=== PATIENT | female | born 1955 | race Caucasian/White ===

== ENCOUNTER 2018-10-19 19:22 | Inpatient (IN) ==
[2018-10-19] MEDS ORDERED: 0.9 % SODIUM CHLORIDE 1,000 ML IV ONE ×2 (19:49→21:02)
--- NOTE | 2018-10-19 19:53 | Emergency Department Note ---
General Adult HPI <Damián Mai - Last Filed: 10/20/18 10:19> - General Source: patient Mode of arrival: ambulatory Limitations: no limitations - History of Present Illness Onset (ago): day(s) (3) Associated symptoms: Reports: loss of appetite, malaise, nausea/vomiting. Denies: confusion, chest pain, cough, diaphoresis, fever/chills, headaches, seizure, shortness of breath, syncope Treatments Prior to Arrival: none <Eneida Marks - Last Filed: 10/25/18 11:32> - General Chief complaint: Blood Pressure Problem Stated complaint: low blood pressure Time Seen by Provider: 10/19/18 19:28 - History of Present Illness HPI Narrative: See the remainder part of this documentation by ALBERTA Nevarez which I agree. I also saw and interviewed and examined patient. She reports that she has been drinking a small bottle of wine nightly for 12 years. She denies blood in her stools. She does not feel like she is going through withdrawals but has not had alcohol in the past couple of days. She does not feel shaky or nervous or sweaty. She reports an additional history of coronary artery disease with stents in 2005 in 2011 she thinks a couple of stents on each of those occasions in her coronary arteries. She also had stents placed in 1 of her lower extremities in 2013. (Damián Mai) 63-year-old female in ED with concerns of low blood pressure readings. Patient states 2 nights ago she had 2 separate episodes of vomiting, one day ago she woke felt ill and had another 2 episodes of vomiting, she went to work had half a glass of water and a couple bites of a banana and had another episode of vomiting. Patient went home and had 3 episodes of diarrhea. Patient woke today with fatigue and feeling dizzy. The vomiting and diarrhea had stopped. Patient advises she is a wine drinker up to a bottle and night but has not drank for the last 3 nights. Patient states she took her blood pressures throughout the afternoon while she was laying in bed on her wrist and had multiple low readings ranging from 59/41 to 82/45. Patient does take medications for hypertension and high cholesterol. Patient states she has had an appendectomy and total hysterectomy in the past. (Eenida Marks) - Related Data Home Medications Medication Instructions Recorded Confirmed Ezetimibe [Zetia] 10 mg PO DAILY 06/04/16 10/19/18 Lisinopril [Zestril] 20 mg PO BID 06/04/16 10/19/18 Metoprolol Succinate [Toprol Xl] 25 mg PO HS 06/04/16 10/19/18 amLODIPine [Norvasc] 10 mg PO DAILY 06/04/16 10/19/18 buPROPion [Wellbutrin Xl] 150 mg PO DAILY 06/04/16 10/19/18 metFORMIN [Glucophage] 500 mg PO BIDCC 06/04/16 10/19/18 Chlorthalidone [Hygroton] 25 mg PO DAILY 10/19/18 10/19/18 Previous Rx's Medication Instructions Recorded Aspirin [Adult Aspirin] 81 mg PO DAILY #30 tablet. 10/20/18 Omeprazole [PriLOSEC] 40 mg PO BIDAC #90 cap 10/21/18 Allergies Allergy/AdvReac Type Severity Reaction Status Date / Time No Known Drug Allergies Allergy Verified 10/19/18 19:27 Review of Systems All systems ED: reviewed and negative except as stated. <Eneida Marks - Last Filed: 10/25/18 11:32> Past Medical History - Past Medical History Medical history: Denies: chronic anticoagulation (except full Aspirin daily (because of previous stenting).), chronic narcotics, CVA, myocardial infarction, renal disease - Social History smoking status: Former smoker (Quit 2016) Drug use: Reports: none. Denies: marijuana <Damián Mai - Last Filed: 10/20/18 10:19> - Past Medical History Medical history: Reports: non-contributory Surgical history ED: Reports: non-contributory - Social History smoking status: Former smoker <Eneida Marks - Last Filed: 10/25/18 11:32> - Past Medical History [facility] Narrative: Medical History (Last Updated 10/20/18 @ 10:15 by Damián Mai DO) Peripheral arterial disease (Chronic) Coronary artery disease (Chronic) Diabetes mellitus type 2, controlled (Chronic) Hyperlipidemia, unspecified (Chronic) Hypertension, essential (Chronic) Alcoholism, chronic (Chronic) Past Surgical History (Last Updated 10/20/18 @ 10:16 by Damián Burrup, DO) S/P angioplasty with stent (Acute) S/P appendectomy (Acute) S/P arterial stent (Acute) S/P hysterectomy with oophorectomy (Acute) (Damián Mai) Physical Exam <Damián Mai - Last Filed: 10/20/18 10:19> Limitations: no limitations General appearance: alert, in no apparent distress Head: atraumatic, normocephalic, normal inspection Eye: Present: normal appearance, PERRL, EOMI. Absent: conjunctival injection ENT: normal oropharynx, mucous membranes moist, TM's normal bilaterally, normal external ear exam Neck: Present: normal inspection, full ROM, trachea midline. Absent: tenderness, lymphadenopathy Chest: Present: normal inspection, symmetric chest wall rise. Absent: tenderness Respiratory: Present: normal lung sounds bilaterally. Absent: respiratory distress, rales/crackles, wheezes Cardiovascular: Present: regular rate, normal rhythm. Absent: systolic murmur, diastolic murmur Abdominal: Present: soft, normal bowel sounds. Absent: distention, tenderness, guarding, rebound, rigidity Extremities: Present: normal inspection. Absent: pedal edema Back: Present: normal inspection. Absent: tenderness, CVA tenderness (R), CVA tenderness (L) Neurological: Present: alert, oriented X3, normal gait Psychiatric: Present: normal affect, normal mood. Absent: depressed, agitated, anxious, flat affect Skin: Present: warm, dry, intact, normal color. Absent: cool, diaphoretic <SelinaEneida A - Last Filed: 10/25/18 11:32> Patient seems remarkably stable in spite of her hypertension. Her orthostatics did not seem to show changes even initially with a systolic in the 70s. Second orthostatics 2 hours later were with a systolic in the 90s with no significant changes positionally. Her pulses were commonly in the 70s lower 80s. She was able to ambulate to the bathroom without any difficulties or dizziness. (Damián Mai) Vital Signs Temperature 98.6 F 10/19/18 19:23 Pulse Rate 80 10/19/18 19:23 Respiratory Rate 18 10/19/18 19:23 Blood Pressure 91/54 10/19/18 19:23 Pulse Oximetry (%) 94 10/19/18 19:23 Temperature 97 F 10/21/18 10:39 Pulse Rate 60 10/21/18 10:39 Respiratory Rate 20 10/21/18 10:39 Blood Pressure 109/73 10/21/18 10:39 Pulse Oximetry (%) 96 10/21/18 10:39 Medical Decision Making - Medical Records Medical records reviewed: Yes I reviewed the patient's medical records. - Lab Data Lab results reviewed: Yes I reviewed the patient's lab results. Result diagrams: 10/20/18 07:10 10/20/18 07:10 <Damián Mai - Last Filed: 10/20/18 10:19> - Lab Data Result diagrams: 10/21/18 04:22 10/21/18 04:22 <Eneida Marks - Last Filed: 10/25/18 11:32> - MDM Narrative Medical decision making narrative: Patient denies she has been a bottle of wine drinker for 12 years. And she does bruise easily. Patient orthostatic blood pressures upon arrival to ED Laying 72/48 heart rate 69 Sitting 73/52 heart rate 76 Standing 68/50 heart rate 81 Patient able to maintain a standing position and talk without dizziness or feelings of lightheadedness. Patient had positive guaiac. Patient received 2 L normal saline. Her blood pressures remained 80-86 systolic. Provided with patient history, diagnostics, presentation this providers end of shift. (Eneida Marks) - Lab Data Lab Results 10/19/18 10/19/18 10/19/18 Range/Units 20:00 20:00 21:30 WBC 5.9 (4.5-11.0) K/mcL RBC 2.84 L (4.00-5.20) M/mcL Hgb 8.7 L (12.0-15.0) g/dL Hct 26.1 L (36.0-48.0) % POC Hct (36.0-48.0) % MCV 91.9 (80.0-100.0) fL MCH 30.5 (26.0-34.0) pg MCHC 33.2 (31.0-36.0) g/dL RDW 13.3 (11.5-14.5) % Plt Count 218 (140-440) K/mcL MPV 8.1 (7.4-10.4) fL Gran % 61.5 (38.0-78.0) % Lymph % (Auto) 21.4 (15.5-49.0) % [place] % (Auto) 9.7 (1.0-12.0) % Eos % (Auto) 6.9 (0.0-7.0) % Baso % (Auto) 0.5 (0.0-2.0) % Gran # 3.6 (1.8-8.0) K/mcL Lymph # (Auto) 1.3 L (1.5-4.8) K/mcL [place] # (Auto) 0.6 (0.1-0.9) K/mcL Eos # (Auto) 0.4 (0.0-0.7) K/mcL Baso # (Auto) 0 (0.0-0.3) K/mcL POC PT 12.4 (11.9-14.5) sec POC INR 1.0 (0.9-1.2) POC Sodium (133-145) mmol/L Sodium 134 (133-145) mmol/L POC Potassium (3.3-5.1) mmol/L Potassium 4.0 (3.3-5.1) mmol/L POC Chloride (96-108) mmol/L Chloride 93 L (96-108) mmol/L Carbon Dioxide 25 (22-30) mmol/L POC Total CO2 (22-30) mmol/L Anion Gap 16.0 (8-16) POC BUN (8-23) mg/dl BUN 77 H (8-23) mg/dl Creatinine 1.8 H (0.6-1.1) mg/dl POC Creatinine (0.6-1.1) mg/dl GFR Calculation 30 Glucose 142 H (70-105) mg/dL POC Glucose (70-105) mg/dL Calcium 9.3 (8.6-10.4) mg/dl POC WB Ioniz Calcium (1.16-1.32) mmol/L Total Bilirubin 0.2 (0.0-1.0) mg/dL AST 63 H (0-37) U/l ALT 43 H (0-40) U/l Alkaline Phosphatase 68 (39-117) U/L Total Protein 7.1 (5.9-8.4) gm/dL Albumin 4.2 (3.2-5.2) gm/dL Globulin 2.9 (2.2-3.7) gm/dL Albumin/Globulin Ratio 1.4 (1.0-2.3) Lipase (7-60) U/L Urine Color Urine Appearance Urine pH (5.0-9.0) Ur Specific [place] (1.000-1.035) Urine Protein (NEG) mg/dL Urine Glucose (UA) (NEG) mg/dL Urine Ketones (NEG) mg/dL Urine Occult Blood (<0.03) mg/dL Urine Nitrate (NEG) Urine Bilirubin (NEG) mg/dL Urine Urobilinogen (NEG) mg/dL Ur Leukocyte Esterase (NEG) /uL Urine RBC (0-1) /hpf Urine WBC (0-4) /hpf Ur Squamous Epith Cells (0-4) /hpf Ur Transition Epith Cell (0-2) /hpf Urine Bacteria (0) /hpf Hyaline Casts (0-2) /lpf Ur Culture Indicated? 10/19/18 10/19/18 10/19/18 Range/Units 21:30 22:22 23:39 WBC (4.5-11.0) K/mcL RBC (4.00-5.20) M/mcL Hgb (12.0-15.0) g/dL Hct (36.0-48.0) % POC Hct 22.0 L (36.0-48.0) % MCV (80.0-100.0) fL MCH (26.0-34.0) pg MCHC (31.0-36.0) g/dL RDW (11.5-14.5) % Plt Count (140-440) K/mcL MPV (7.4-10.4) fL Gran % (38.0-78.0) % Lymph % (Auto) (15.5-49.0) % [place] % (Auto) (1.0-12.0) % Eos % (Auto) (0.0-7.0) % Baso % (Auto) (0.0-2.0) % Gran # (1.8-8.0) K/mcL Lymph # (Auto) (1.5-4.8) K/mcL [place] # (Auto) (0.1-0.9) K/mcL Eos # (Auto) (0.0-0.7) K/mcL Baso # (Auto) (0.0-0.3) K/mcL POC PT (11.9-14.5) sec POC INR (0.9-1.2) POC Sodium 135 (133-145) mmol/L Sodium (133-145) mmol/L POC Potassium 3.8 (3.3-5.1) mmol/L Potassium (3.3-5.1) mmol/L POC Chloride 101 (96-108) mmol/L Chloride (96-108) mmol/L Carbon Dioxide (22-30) mmol/L POC Total CO2 20 L (22-30) mmol/L Anion Gap (8-16) POC BUN 69 H (8-23) mg/dl BUN (8-23) mg/dl Creatinine (0.6-1.1) mg/dl POC Creatinine 1.6 H (0.6-1.1) mg/dl GFR Calculation Glucose (70-105) mg/dL POC Glucose 95 (70-105) mg/dL Calcium (8.6-10.4) mg/dl POC WB Ioniz Calcium 1.01 L (1.16-1.32) mmol/L Total Bilirubin (0.0-1.0) mg/dL AST (0-37) U/l ALT (0-40) U/l Alkaline Phosphatase (39-117) U/L Total Protein (5.9-8.4) gm/dL Albumin (3.2-5.2) gm/dL Globulin (2.2-3.7) gm/dL Albumin/Globulin Ratio (1.0-2.3) Lipase 55 (7-60) U/L Urine Color Yellow Urine Appearance Hazy Urine pH 6.0 (5.0-9.0) Ur Specific [place] 1.010 (1.000-1.035) Urine Protein Neg (NEG) mg/dL Urine Glucose (UA) Norm (NEG) mg/dL Urine Ketones Neg (NEG) mg/dL Urine Occult Blood Neg (<0.03) mg/dL Urine Nitrate Neg (NEG) Urine Bilirubin Neg (NEG) mg/dL Urine Urobilinogen Norm (NEG) mg/dL Ur Leukocyte Esterase 1+ (small) (NEG) /uL Urine RBC 1 (0-1) /hpf Urine WBC 41 H (0-4) /hpf Ur Squamous Epith Cells 2 (0-4) /hpf Ur Transition Epith Cell 3 H (0-2) /hpf Urine Bacteria Few A (0) /hpf Hyaline Casts 1 (0-2) /lpf Ur Culture Indicated? Yes Disposition Pt seen by SUPERINTENDENT [employer]/PA only: No <Damián Mai - Last Filed: 10/20/18 10:19> Time of Disposition: 11:32 <Eneida Marks - Last Filed: 10/25/18 11:32> Clinical Impression: Anemia, blood loss, Alcoholism, chronic, Elevated LFTs Hypotension Qualifiers: Hypotension type: other hypotension type Qualified Code(s): I95.89 - Other hypotension Bleeding gastrointestinal Qualifiers: GI bleed type/associated pathology: unspecified gastrointestinal hemorrhage type Qualified Code(s): K92.2 - Gastrointestinal hemorrhage, unspecified ARF (acute renal failure) Qualifiers: Acute renal failure type: unspecified Qualified Code(s): N17.9 - Acute kidney failure, unspecified Summary: With patient having hypotension, positive guaiac, and anemia, she is in significant risk for dangerous GI hemorrhage. She was typed and screened 2 units, Dr. Cuellar was consulted, and is available if she decompensates and will see her tomorrow. Patient is being admitted for careful observation, and treatment. She was given a couple of liters of fluid. A second IV was started. Orthostatics were done. Dr. Strickland is assuming her care inpatient. (Damián Mai) Disposition: Xfer As Inpt ([facility]) Condition: Fair
[2018-10-19 20:43] LABS: Basophils # (Auto) 0 K/mcL (0.0-0.3); Basophils % (Auto) 0.5 % (0.0-2.0); Eosinophils # (Auto) 0.4 K/mcL (0.0-0.7); Eosinophils % (Auto) 6.9 % (0.0-7.0); Granulocytes % (Auto) 61.5 % (38.0-78.0); Lymphocytes # (Auto) 1.3 K/mcL (1.5-4.8); Lymphocytes % (Auto) 21.4 % (15.5-49.0); Mean Cell Volume 91.9 fL (80.0-100.0); Mean Corpuscular HGB Conc 33.2 g/dL (31.0-36.0); Monocytes # (Auto) 0.6 K/mcL (0.1-0.9); Monocytes % (Auto) 9.7 % (1.0-12.0); Platelet Count 218 K/mcL (140-440); RBC 2.84 M/mcL (4.00-5.20); Red Cell Distribution Width 13.3 % (11.5-14.5)
[2018-10-19 21:01] LABS: ALT/SGPT 43 U/l (0-40); Albumin 4.2 gm/dL (3.2-5.2); Albumin/Globulin Ratio 1.4 (1.0-2.3); Alkaline Phosphatase 68 U/L (39-117); Blood Urea Nitrogen 77 mg/dl (8-23)
[2018-10-20] MEDS ORDERED: ACETAMINOPHEN 325 MG TABLET PO PRN ×2 (00:07→08:53)
[2018-10-20] MEDS ORDERED: ONDANSETRON 4 MG/2 ML VIAL IV PRN ×2 (00:07→08:53)
[2018-10-20] MEDS ORDERED: 0.9 % SODIUM CHLORIDE 1,000 ML IV ONE (00:09)
[2018-10-20] MEDS ORDERED: PANTOPRAZOLE 40 MG VIAL IV ONE ×2 (00:20→00:59)
[2018-10-20] MEDS ORDERED: 0.9 % SODIUM CHLORIDE 250 ML IV SCH (00:30)
[2018-10-20] MEDS ORDERED: PANTOPRAZOLE 80 MG in 0.9 % SODIUM CHLORIDE 100 ML IV SCH ×2 (00:30→10:00)
[2018-10-20 01:06] LABS: Appearance,Urine HAZY; Bacteria,Urine FEW /hpf (0); Bilirubin,Urine NEG (NEG); Color,Urine YELLOW; Glucose,Urine (UA) NORM (NEG); Leukocyte Esterase,Urine 1+ (SMALL) /uL (NEG); Protein,Urine NEG (NEG); Urine Blood NEG mg/dL (<0.03); Urine Hyaline Cast 1 /lpf (0-2); Urine RBC 1 /hpf (0-1); Urine Squamous Epithelial Cell 2 /hpf (0-4); Urine Transitional Epi Cells 3 /hpf (0-2); Urine WBC 41 /hpf (0-4); Urobilinogen,Urine NORM (NEG)
[2018-10-20] MEDS ORDERED: LORazepam 2 MG/ML VIAL ONE (02:06)
[2018-10-20] MEDS ORDERED: hydrOXYzine 25 MG TABLET PO ONE (02:06)
[2018-10-20] MEDS ORDERED: LORazepam 2 MG/ML VIAL IV ONE (02:06)
[2018-10-20] MEDS: 0.9 % SODIUM CHLORIDE 1,000 ML IV SCH ×4 (06:14→20:49)
--- NOTE | 2018-10-20 07:55 | Internal Med History&Physical ---
Medical - H&P: HPI Patient information: Note initiated : 10/20/18 at 7:52 am Service Date, if different from initiated Date: [] Patient: Mathieu Hebert a 63 y/o F admitted on 10/20/18 for low blood pressure. Chief Complaint: [] History of present illness: Ms. Hebert is a 63 year old F Who presents to the ED for fatigue lightheadedness low blood pressure. Patient reports that Monday evening she developed nausea vomiting of dark vomitus. The next day she had some an episode in the morning as well but went to work and then later at the end of the workday started having nausea vomiting again. She had diarrhea which was dark. She felt very weak and lightheaded. She went home from work and slept all night. Monday she did not have any nausea vomiting diarrhea but had severe lightheadedness and weakness and measured her blood pressure with systolic in the 70s and 80s. Came to the ED. In the ED she had a hemoglobin 8.7 with a Hemoccult positive stool. Her BUN and creatinine were elevated. EKG was okay and chest x-ray is okay no chest pain or shortness of breath. Dr. Cuellar was contacted who would perform endoscopy on Monday. Patient received 3 L of IV fluids overnight as well as 2 units of PRBCs. Patient does feel better this morning. No vomiting or diarrhea overnight. She has not had this before. She drinks a bottle of wine a night but has not had any increased intake lately. She takes an aspirin 325 daily Review of Systems: Pertinent positives as above. Denies headache/fever/chills/chest or abdominal pain/cough/dyspnea. Remaining 10 point review of systems reviewed and negative Medical - H&P: PMH Medical history: Medical History (Last Updated 10/19/18 @ 22:07 by Damián Mai DO) Diabetes mellitus type 2, controlled (Chronic) Hyperlipidemia, unspecified (Chronic) Hypertension, essential (Chronic) Alcoholism, chronic (Chronic) Past Surgical History (Last Updated 10/19/18 @ 22:03 by Damián Mai DO) S/P appendectomy (Acute) S/P hysterectomy with oophorectomy (Acute) Family history: Mother had stomach cancer she did not know her father Social history: She quit smoking 2 years ago Drinks up to a bottle of wine a night no liquor, she wants to cut back Lives by herself Medical - H&P: Meds Home Medications Medication Instructions Recorded Confirmed Type Ezetimibe [Zetia] 10 mg PO DAILY 06/04/16 10/19/18 History Lisinopril [Zestril] 20 mg PO BID 06/04/16 10/19/18 History Metoprolol Succinate [Toprol Xl] 25 mg PO HS 06/04/16 10/19/18 History amLODIPine [Norvasc] 10 mg PO DAILY 06/04/16 10/19/18 History buPROPion [Wellbutrin Xl] 150 mg PO DAILY 06/04/16 10/19/18 History metFORMIN [Glucophage] 500 mg PO BIDCC 06/04/16 10/19/18 History Chlorthalidone [Hygroton] 25 mg PO DAILY 10/19/18 10/19/18 History Aspirin [Lite Coat Aspirin] 1 tab PO DAILY 10/20/18 10/20/18 History Allergies Allergy/AdvReac Type Severity Reaction Status Date / Time No Known Drug Allergies Allergy Verified 10/19/18 19:27 Medical - H&P: Exam - Constitutional Vitals: Temp Pulse Resp BP Pulse Ox 97.4 F 51 L 16 95/58 99 10/20/18 07:02 10/20/18 06:00 10/20/18 07:02 10/20/18 07:02 10/20/18 07:02 Exam: General: Alert, Awake, No acute Distress Eyes/N/T: EOMI, PEERL, DMM Head/Neck: neck supple, normocephalic atraumatic CV: RRR, 2/6 SM Pulm: Clear b/l, no wheezing/rhonchi/rales Abd: soft, nontender, +BS x4 Ext: no clubbing/cyanosis/edema Neuro: Alert, no focal deficits, moves all extremities, CN 2-12 grossly intact, symmetrical strength b/l upper/lower, sensations intact b/l upper/lower Skin: warm/dry Medical - H&P: Reslt - Labs CBC & Chem 7: 10/19/18 20:00 10/19/18 20:00 Labs: Short CBC 10/19/18 Range/Units 20:00 WBC 5.9 (4.5-11.0) K/mcL Hgb 8.7 L (12.0-15.0) g/dL Hct 26.1 L (36.0-48.0) % Plt Count 218 (140-440) K/mcL BMP 10/19/18 20:00 Sodium 134 Potassium 4.0 Chloride 93 L Carbon Dioxide 25 BUN 77 H Creatinine 1.8 H Glucose 142 H Calcium 9.3 Liver Function 10/19/18 Range/Units 20:00 Total Bilirubin 0.2 (0.0-1.0) mg/dL AST 63 H (0-37) U/l ALT 43 H (0-40) U/l Alkaline Phosphatase 68 (39-117) U/L Albumin 4.2 (3.2-5.2) gm/dL Urine 10/19/18 Range/Units 23:39 Urine Color Yellow Urine Appearance Hazy Urine pH 6.0 (5.0-9.0) Ur Specific [place] 1.010 (1.000-1.035) Urine Protein Neg (NEG) mg/dL Urine Glucose (UA) Norm (NEG) mg/dL - Impressions Chest x-ray and EKG unremarkable for any acute process Medical - H&P: A/P - Narrative A/P Narrative: A: *GI bleed: *Acute blood loss anemia: -s/p 2PRBC (10/20) *Hypotension: Secondary to hypovolemia/hemorrhage from blood loss and medications *GLYNN: 2/2 above *CAD w/stent: No chest pain. has been on ASA 325 daily *Alcohol abuse: *DM: On metformin at home *HTN: On Norvasc/ Toprol/ chlorthalidone/ lisinopril at home * P: -IVF's -serial H&H -PPI gtt -Dr. Jefferson for endoscopy -CIWA, Vitamins, prn Benzo -BP meds held -ASA held, needs only 81mg -SSI - -ppx: [facility] Medical - H&P: Qual - VTE Deep Vein Thrombosis/Pulmonary Embolism Present on Admission: No
[2018-10-20 08:00] LABS: Basophils # (Auto) 0 K/mcL (0.0-0.3); Basophils % (Auto) 0.7 % (0.0-2.0); Eosinophils # (Auto) 0.4 K/mcL (0.0-0.7); Eosinophils % (Auto) 9.1 % (0.0-7.0); Granulocytes % (Auto) 49.9 % (38.0-78.0); Lymphocytes # (Auto) 1.1 K/mcL (1.5-4.8); Lymphocytes % (Auto) 28.5 % (15.5-49.0); Mean Cell Volume 90.8 fL (80.0-100.0); Mean Corpuscular HGB Conc 33.6 g/dL (31.0-36.0); Monocytes # (Auto) 0.5 K/mcL (0.1-0.9); Monocytes % (Auto) 11.8 % (1.0-12.0); Platelet Count 153 K/mcL (140-440); RBC 3.28 M/mcL (4.00-5.20); Red Cell Distribution Width 14.1 % (11.5-14.5)
--- NOTE | 2018-10-20 08:08 | XRay Report ---
HISTORY: Hypotension and dizziness FINDINGS: The lungs are clear and normally expanded. The heart size, pulmonary vasculature, mediastinum, joão and pleura are normal. There are few old healed bilateral rib fractures. Spine has a mild kyphotic curvature and mild arthritis. IMPRESSION: Normal chest. Interpreted and Authenticated by: John Crespo 10/20/18
[2018-10-20 08:13] LABS: ALT/SGPT 36 U/l (0-40); Albumin 3.7 gm/dL (3.2-5.2); Albumin/Globulin Ratio 1.5 (1.0-2.3); Alkaline Phosphatase 56 U/L (39-117); Bilirubin,Direct < 0.2 mg/dL (0.0-0.3); Blood Urea Nitrogen 49 mg/dl (8-23); Gamma Glutamyl Transpeptidase 111 U/L (5-36)
[2018-10-20] MEDS ORDERED: DEXTROSE 31 GM ORAL.SUSP PO PRN (08:53)
[2018-10-20] MEDS ORDERED: chlordiazePOXIDE 25 MG CAPSULE PO PRN (08:53)
[2018-10-20] MEDS ORDERED: LORazepam 2 MG/ML VIAL IV PRN (08:53)
[2018-10-20] MEDS ORDERED: POTASSIUM CHLORIDE 40 MEQ in DEXTROSE 5% IN WATER 500 ML IV PRN (08:53)
[2018-10-20] MEDS ORDERED: IPRATROPIUM/ALBUTEROL 3 ML AMPUL.NEB NEB PRN (08:53)
[2018-10-20] MEDS ORDERED: POTASSIUM CHLORIDE 20 MEQ TABLET PO PRN ×2 (08:53)
[2018-10-20] MEDS ORDERED: PROMETHAZINE 25 MG TABLET PO PRN (08:53)
[2018-10-20] MEDS ORDERED: DEXTROSE 50% 50 ML VIAL IV PRN (08:53)
[2018-10-20] MEDS ORDERED: POLYETHYLENE GLYCOL 3350 17 GM PACKET PO ONE (08:53)
[2018-10-20] MEDS ORDERED: MAGNESIUM SULFATE 2 GM/50 ML BAG IV PRN (08:53)
[2018-10-20] MEDS: MULTIVIT,THER IRON,CA,FA & MIN 1 TABLET PO SCH (10:20)
[2018-10-20] MEDS: FOLIC ACID 1 MG TABLET PO SCH (10:20)
[2018-10-20] MEDS: THIAMINE 100 MG in 0.9 % SODIUM CHLORIDE 50 ML IV SCH (10:20)
[2018-10-20] MEDS: buPROPion 150 MG TAB.XL.24H PO SCH (10:23)
[2018-10-20] MEDS: INSULIN LISPRO 1 UNIT/0.01 ML UNIT SQ SCH ×3 (12:05→20:48)
[2018-10-20] MEDS ORDERED: KETAMINE HCL 50 MG/ML ML IV PRN (13:29)
[2018-10-20] MEDS ORDERED: MIDAZOLAM 2 MG/2 ML VIAL IV SCH (13:30)
[2018-10-20] MEDS ORDERED: PROPOFOL 200 MG/20 ML VIAL IV SCH (13:30)
[2018-10-20] MEDS: 0.9 % SODIUM CHLORIDE 10 ML SYRINGE IV SCH ×4 (13:30→22:49)
[2018-10-20] MEDS ORDERED: MIDAZOLAM 2 MG/2 ML VIAL ONE (13:35)
[2018-10-20] MEDS ORDERED: PROPOFOL 20 ML IV ONE (13:35)
--- NOTE | 2018-10-20 15:28 | Discharge Summary ---
Medical - DS: Prov Patient information: Note initiated : 10/20/18 at 3:26 pm Service Date, if different from initiated Date: [] Patient: Mathieu Hebert 63 y/o F admitted on 10/20/18 for low blood pressure. Chief Complaint: [] Date of admission: 10/20/18 00:44 Discharge date: 10/21/18 Primary care physician: Dhaval Navarro Consults: 10/19/18 Consult to Physician [CONS] Stat Comment: Consulting Provider: Gera Strickland Reason For Exam: Physician to Consult 10/20/18 10:39 Consult to Physician [CONS] Routine Comment: Consulting Provider: Samuel Jefferson Reason For Exam: Physician to Consult Medical - DS: Meds - Discharge Medications Prescriptions: Aspirin [Adult Aspirin] 81 mg PO DAILY #30 tablet. Omeprazole [PriLOSEC] 40 mg PO BIDAC #90 cap Active and Home Medications: Home Medications Ezetimibe [Zetia] 10 mg PO DAILY 06/04/16 [History Confirmed 10/19/18 Last Taken Unknown] Lisinopril [Zestril] 20 mg PO BID 06/04/16 [History Confirmed 10/19/18 Last Taken Unknown] Metoprolol Succinate [Toprol Xl] 25 mg PO HS 06/04/16 [History Confirmed 10/19/18 Last Taken Unknown] amLODIPine [Norvasc] 10 mg PO DAILY 06/04/16 [History Confirmed 10/19/18 Last Taken Unknown] buPROPion [Wellbutrin Xl] 150 mg PO DAILY 06/04/16 [History Confirmed 10/19/18 Last Taken Unknown] metFORMIN [Glucophage] 500 mg PO BIDCC 06/04/16 [History Confirmed 10/19/18 Last Taken Unknown] Chlorthalidone [Hygroton] 25 mg PO DAILY 10/19/18 [History Confirmed 10/19/18 Last Taken Unknown] Aspirin 325mg [Lite Coat Aspirin] 1 tab PO DAILY 10/20/18 [History Confirmed 10/20/18 Last Taken 10/19/18] Home Medications Ezetimibe [Zetia] 10 mg PO DAILY 06/04/16 [History Confirmed 10/19/18 Last Taken Unknown] Lisinopril [Zestril] 20 mg PO BID 06/04/16 [History Confirmed 10/19/18 Last Taken Unknown] Metoprolol Succinate [Toprol Xl] 25 mg PO HS 06/04/16 [History Confirmed 10/19/18 Last Taken Unknown] amLODIPine [Norvasc] 10 mg PO DAILY 06/04/16 [History Confirmed 10/19/18 Last Taken Unknown] buPROPion [Wellbutrin Xl] 150 mg PO DAILY 06/04/16 [History Confirmed 10/19/18 Last Taken Unknown] metFORMIN [Glucophage] 500 mg PO BIDCC 06/04/16 [History Confirmed 10/19/18 Last Taken Unknown] Chlorthalidone [Hygroton] 25 mg PO DAILY 10/19/18 [History Confirmed 10/19/18 Last Taken Unknown] Aspirin [Adult Aspirin] 81 mg PO DAILY #30 tablet. 10/20/18 [Rx Last Taken Unknown] Omeprazole [PriLOSEC] 40 mg PO BIDAC #90 cap 10/21/18 [Rx Last Taken Unknown] Medical - DS: Hosp Hospital course: Ms. Hebert is a 63 year old F Who presents to the ED for fatigue lightheadedness low blood pressure. Patient reports that Monday evening she developed nausea vomiting of dark vomitus. The next day she had some an episode in the morning as well but went to work and then later at the end of the workday started having nausea vomiting again. She had diarrhea which was dark. She felt very weak and lightheaded. She went home from work and slept all night. Monday she did not have any nausea vomiting diarrhea but had severe lightheadedness and weakness and measured her blood pressure with systolic in the 70s and 80s. Came to the ED. In the ED she had a hemoglobin 8.7 with a Hemoccult positive stool. Her BUN and creatinine were elevated. EKG was okay and chest x-ray is okay no chest pain or shortness of breath. Dr. Cuellar was contacted who would perform endoscopy on Monday. Patient received 3 L of IV fluids overnight as well as 2 units of PRBCs. Patient does feel better this morning. No vomiting or diarrhea overnight. She has not had this before. She drinks a bottle of wine a night but has not had any increased intake lately. She takes an aspirin 325 daily EGD with gastritis/duodenitis/ulcer with clean base no active bleeding. continue ppi for several months. f/u EGD with Li outpt in 3 months. If remains stable overnight then likely d/c in AM. 10/21 Doing well. No further bleeding. Stable hemoglobin. Stable for discharge Discharge diagnosis: Pretension upper GI bleed acute blood loss anemia acute kidney injury Secondary discharge diagnosis: Alcohol abuse diabetes hypertension CAD - Time Spent with Patient Total time spent providing and/or coordinating discharge services: Greater than 30 minutes Medical - DS: Exam - Constitutional Vitals: Vital Signs Temp Pulse Resp BP Pulse Ox 10/20/18 14:46 67 101/67 99 10/20/18 14:38 64 16 110/68 96 10/20/18 14:15 76 16 133/76 97 10/20/18 14:10 82 16 164/86 100 10/20/18 14:05 76 14 134/87 100 10/20/18 13:55 62 15 130/73 100 10/20/18 13:00 50 L 18 112/68 98 10/20/18 12:10 52 L 100 10/20/18 12:01 97.7 F 59 L 102/64 98 10/20/18 11:01 55 L 103/63 98 10/20/18 10:01 116/65 10/20/18 09:00 63 107/64 100 10/20/18 08:00 60 16 103/61 96 10/20/18 07:02 97.4 F 16 95/58 99 10/20/18 06:00 51 L 106/64 96 10/20/18 05:01 69 86/61 95 10/20/18 04:33 57 L 88/57 96 10/20/18 04:11 66 90/53 97 10/20/18 04:01 98.1 F 66 88/61 93 10/20/18 03:01 61 85/57 97 10/20/18 02:33 64 119/59 95 10/20/18 02:01 64 75/52 95 10/20/18 01:45 64 89/57 95 10/20/18 01:36 64 87/52 98 10/20/18 01:31 64 94/58 97 10/20/18 01:16 65 92/57 99 10/20/18 01:01 64 91/60 97 10/20/18 00:59 97.8 F 66 20 89/60 95 10/20/18 00:54 90/56 10/20/18 00:44 94 10/20/18 00:42 68 96 10/20/18 00:31 64 85/51 94 10/20/18 00:26 65 94 10/20/18 00:16 62 80/58 95 10/20/18 00:02 66 95 10/20/18 00:01 61 85/49 96 10/19/18 23:46 65 85/54 97 10/19/18 23:35 62 98 10/19/18 23:34 63 97/58 99 10/19/18 23:16 66 91/51 97 10/19/18 22:57 67 99 10/19/18 22:46 65 90/59 99 10/19/18 22:41 69 99 10/19/18 22:34 97/62 97 10/19/18 22:33 99/68 96 10/19/18 22:31 96/58 96 10/19/18 22:16 88/56 96 10/19/18 22:01 84/56 10/19/18 21:46 83/46 10/19/18 21:45 95 10/19/18 21:31 81/51 96 10/19/18 21:16 64 79/51 95 10/19/18 21:01 62 77/52 95 10/19/18 20:50 63 82/54 96 10/19/18 20:46 65 69/49 94 10/19/18 20:31 63 71/47 94 10/19/18 20:19 65 80/53 95 10/19/18 19:23 98.6 F 80 18 91/54 94 Intake and Output 10/20/18 10/20/18 10/20/18 05:59 13:59 21:59 Intake Total 19998 Output Total 650 1550 Balance 1350 338 Intake: IV 1999 1033 Sodium Chloride 0.9% 1,000 ml @ 2000 256 125 mls/hr IV .Q8H [facility] Rx#: [id number] Sodium Chloride 0.9% 250 ml @ 117 20 mls/hr IV .[id number] [facility] Rx#: [id number] Protonix 80 mg In Sodium 34 Chloride 0.9% 100 ml @ 8 MG/HR 10 mls/hr IV Q10H [facility] Rx#: [id number] Vitamin B1 100 mg In Sodium 51 Chloride 0.9% 50 ml @ 50 mls/hr IV DAILY [facility] Rx#:[id number] Oral 180 Blood Product 675 Output: Void Amount 650 1550 Other: Urine Appearance Clear Urine Color Bright Yellow Weight 77.791 kg Medical - DS: Data Labs on day of discharge: Labs from last 24 hours 10/20/18 10/20/18 10/19/18 07:10 07:10 23:39 WBC 3.9 L RBC 3.28 L Hgb 10.0 L Hct 29.8 L POC Hct MCV 90.8 MCH 30.5 MCHC 33.6 RDW 14.1 Plt Count 153 MPV 7.9 Gran % 49.9 Lymph % (Auto) 28.5 Keith % (Auto) 11.8 Eos % (Auto) 9.1 H Baso % (Auto) 0.7 Gran # 2.0 Lymph # (Auto) 1.1 L Keith # (Auto) 0.5 Eos # (Auto) 0.4 Baso # (Auto) 0 POC PT POC INR POC Sodium Sodium 139 POC Potassium Potassium 3.9 POC Chloride Chloride 105 Carbon Dioxide 24 POC Total CO2 Anion Gap 10.0 POC BUN BUN 49 H Creatinine 0.9 POC Creatinine GFR Calculation 69 Glucose 98 POC Glucose Uric Acid 8.0 Calcium 8.3 L POC WB Ioniz Calcium Phosphorus 3.8 Magnesium 2.4 Total Bilirubin 0.7 Direct Bilirubin < 0.2 GGT 111 H AST 54 H ALT 36 Alkaline Phosphatase 56 Lactate Dehydrogenase 140 Total Protein 6.2 Albumin 3.7 Globulin 2.5 Albumin/Globulin Ratio 1.5 Triglycerides 104 Lipase Urine Color Yellow Urine Appearance Hazy Urine pH 6.0 Ur Specific Perry 1.010 Urine Protein Neg Urine Glucose (UA) Norm Urine Ketones Neg Urine Occult Blood Neg Urine Nitrate Neg Urine Bilirubin Neg Urine Urobilinogen Norm Ur Leukocyte Esterase 1+ (small) Urine RBC 1 Urine WBC 41 H Ur Squamous Epith Cells 2 Ur Transition Epith Cell 3 H Urine Bacteria Few A Hyaline Casts 1 Ur Culture Indicated? Yes 10/19/18 10/19/18 10/19/18 22:22 21:30 21:30 WBC RBC Hgb Hct POC Hct 22.0 L MCV MCH MCHC RDW Plt Count MPV Gran % Lymph % (Auto) Keith % (Auto) Eos % (Auto) Baso % (Auto) Gran # Lymph # (Auto) Keith # (Auto) Eos # (Auto) Baso # (Auto) POC PT 12.4 POC INR 1.0 POC Sodium 135 Sodium POC Potassium 3.8 Potassium POC Chloride 101 Chloride Carbon Dioxide POC Total CO2 20 L Anion Gap POC BUN 69 H BUN Creatinine POC Creatinine 1.6 H GFR Calculation Glucose POC Glucose 95 Uric Acid Calcium POC WB Ioniz Calcium 1.01 L Phosphorus Magnesium Total Bilirubin Direct Bilirubin GGT AST ALT Alkaline Phosphatase Lactate Dehydrogenase Total Protein Albumin Globulin Albumin/Globulin Ratio Triglycerides Lipase 55 Urine Color Urine Appearance Urine pH Ur Specific Perry Urine Protein Urine Glucose (UA) Urine Ketones Urine Occult Blood Urine Nitrate Urine Bilirubin Urine Urobilinogen Ur Leukocyte Esterase Urine RBC Urine WBC Ur Squamous Epith Cells Ur Transition Epith Cell Urine Bacteria Hyaline Casts Ur Culture Indicated? 10/19/18 10/19/18 10/19/18 20:00 20:00 20:00 WBC RBC Hgb Hct POC Hct MCV MCH MCHC RDW Plt Count MPV Gran % Lymph % (Auto) Keith % (Auto) Eos % (Auto) Baso % (Auto) Gran # Lymph # (Auto) Keith # (Auto) Eos # (Auto) Baso # (Auto) POC PT Pending POC INR Pending POC Sodium Sodium 134 POC Potassium Potassium 4.0 POC Chloride Chloride 93 L Carbon Dioxide 25 POC Total CO2 Anion Gap 16.0 POC BUN BUN 77 H Creatinine 1.8 H POC Creatinine GFR Calculation 30 Glucose 142 H POC Glucose Uric Acid Calcium 9.3 POC WB Ioniz Calcium Phosphorus Magnesium Total Bilirubin 0.2 Direct Bilirubin GGT AST 63 H ALT 43 H Alkaline Phosphatase 68 Lactate Dehydrogenase Total Protein 7.1 Albumin 4.2 Globulin 2.9 Albumin/Globulin Ratio 1.4 Triglycerides Lipase Pending Urine Color Urine Appearance Urine pH Ur Specific Perry Urine Protein Urine Glucose (UA) Urine Ketones Urine Occult Blood Urine Nitrate Urine Bilirubin Urine Urobilinogen Ur Leukocyte Esterase Urine RBC Urine WBC Ur Squamous Epith Cells Ur Transition Epith Cell Urine Bacteria Hyaline Casts Ur Culture Indicated? 10/19/18 20:00 WBC 5.9 RBC 2.84 L Hgb 8.7 L Hct 26.1 L POC Hct MCV 91.9 MCH 30.5 MCHC 33.2 RDW 13.3 Plt Count 218 MPV 8.1 Gran % 61.5 Lymph % (Auto) 21.4 Keith % (Auto) 9.7 Eos % (Auto) 6.9 Baso % (Auto) 0.5 Gran # 3.6 Lymph # (Auto) 1.3 L Keith # (Auto) 0.6 Eos # (Auto) 0.4 Baso # (Auto) 0 POC PT POC INR POC Sodium Sodium POC Potassium Potassium POC Chloride Chloride Carbon Dioxide POC Total CO2 Anion Gap POC BUN BUN Creatinine POC Creatinine GFR Calculation Glucose POC Glucose Uric Acid Calcium POC WB Ioniz Calcium Phosphorus Magnesium Total Bilirubin Direct Bilirubin GGT AST ALT Alkaline Phosphatase Lactate Dehydrogenase Total Protein Albumin Globulin Albumin/Globulin Ratio Triglycerides Lipase Urine Color Urine Appearance Urine pH Ur Specific Perry Urine Protein Urine Glucose (UA) Urine Ketones Urine Occult Blood Urine Nitrate Urine Bilirubin Urine Urobilinogen Ur Leukocyte Esterase Urine RBC Urine WBC Ur Squamous Epith Cells Ur Transition Epith Cell Urine Bacteria Hyaline Casts Ur Culture Indicated? Medical - DS: A/P - Patient/Caregiver Discharge Instructions Activity: increase activity as tolerated Diet: Cardiac Additional Instructions: Follow-up with GI for repeat EGD in 3 months. Prescriptions: Aspirin [Adult Aspirin] 81 mg PO DAILY #30 tablet. Omeprazole [PriLOSEC] 40 mg PO BIDAC #90 cap - Follow up Plan Follow up with: Dhaval Navarro ARNP [Primary Care Provider] - Samuel Jefferson MD [Physician] - Disposition: Home, Self-Care Prognosis: Fair Rehab Potential: Fair Overall status at discharge: patient is back to baseline Medical - DS: Qual - VTE Deep Vein Thrombosis/Pulmonary Embolism Present on Admission: No
[2018-10-20] MEDS ORDERED: hydrOXYzine 25 MG TABLET PO PRN (19:39)
[2018-10-20] MEDS: PANTOPRAZOLE 40 MG TABLET PO SCH (20:13)
[2018-10-20] MEDS ORDERED: METOPROLOL SUCCINATE 25 MG TAB.XL.24H PO SCH (21:00)
[2018-10-21 05:28] LABS: Basophils # (Auto) 0 K/mcL (0.0-0.3); Basophils % (Auto) 0.6 % (0.0-2.0); Eosinophils # (Auto) 0.5 K/mcL (0.0-0.7); Eosinophils % (Auto) 10.1 % (0.0-7.0); Granulocytes % (Auto) 52.8 % (38.0-78.0); Lymphocytes # (Auto) 1.1 K/mcL (1.5-4.8); Mean Cell Volume 91.5 fL (80.0-100.0); Mean Corpuscular HGB Conc 33.2 g/dL (31.0-36.0); Monocytes # (Auto) 0.5 K/mcL (0.1-0.9); Monocytes % (Auto) 11.5 % (1.0-12.0); Platelet Count 165 K/mcL (140-440); RBC 3.57 M/mcL (4.00-5.20); Red Cell Distribution Width 13.5 % (11.5-14.5)
[2018-10-21] MEDS: 0.9 % SODIUM CHLORIDE 10 ML SYRINGE IV SCH ×2 (05:35)
[2018-10-21 05:58] LABS: ALT/SGPT 43 U/l (0-40); Albumin/Globulin Ratio 1.3 (1.0-2.3); Alkaline Phosphatase 62 U/L (39-117); Bilirubin,Direct < 0.2 mg/dL (0.0-0.3); Blood Urea Nitrogen 20 mg/dl (8-23); Gamma Glutamyl Transpeptidase 121 U/L (5-36)
[2018-10-21] MEDS: PANTOPRAZOLE 40 MG TABLET PO SCH (08:11)
[2018-10-21] MEDS: INSULIN LISPRO 1 UNIT/0.01 ML UNIT SQ SCH (08:24)
[2018-10-21] MEDS: THIAMINE 100 MG in 0.9 % SODIUM CHLORIDE 50 ML IV SCH (08:56)
[2018-10-21] MEDS: FOLIC ACID 1 MG TABLET PO SCH (08:57)
[2018-10-21] MEDS: buPROPion 150 MG TAB.XL.24H PO SCH (08:57)
[2018-10-21] MEDS: MULTIVIT,THER IRON,CA,FA & MIN 1 TABLET PO SCH (08:57)
--- NOTE | 2018-10-22 07:58 | Operative Note ---
DATE OF OPERATION: 10/20/2018 PREPROCEDURE DIAGNOSIS: Upper GI bleed secondary to ulcer versus hemorrhagic gastritis versus varices. POSTPROCEDURE DIAGNOSES: Gastritis, gastric ulcer with clean base, duodenitis, ? Briseno's. PROCEDURE: Esophagogastroduodenoscopy with biopsy for CLOtest and histopathology. INSTRUMENT USED: Olympus ANASTASIIA [id number] endoscope. SPECIMENS OBTAINED: Biopsies from antrum for histopathology and CLOtest. CLOtest RESULTS: INDICATIONS: The patient is a 63-year-old lady whose primary care provider is Dhaval Navarro NP. The patient did present to the emergency department because of problems with nausea and vomiting. She will bring up coffee ground-like material. She does have some dark stool. I heard the stool was positive for occult blood. She states her last vomiting was about morning 5:00 a.m. She denies constipation, does have some loose stools. She denies red blood per rectum but does have dark stool that is reportedly guaiac positive, or Hemoccult positive. She does use aspirin 325 mg a day. She does not take an additional blood thinner. She does drink 1 or 2 cups of coffee a day. She has about 1 full bottle of chardonnay most every night. She does have a drinking problem. She may drink 2 or 3 16-ounce bottles of water a day. She does have stents in her heart. She denies any lung problems. She denies any allergies to medications. Her hemoglobin was low-I believe it was 8.7. She did receive a blood transfusion, I believe 10.0. She did have low blood pressure, but I believe this has improved some. BUN was 77 and creatinine 1.8 on the . On the it was down to 49 with a creatinine of 0.9. Sodium on the was 139, potassium 3.9, chloride 105, CO2 24. The AST was 54 on the with ALT of 36. On the the AST was 63 with an ALT of 43. The patient's INR was 1.0, normal. Pulse rate was around 62, blood pressure 130/73. Shortly before the procedure, earlier the blood pressure was 102/64. Fingerstick glucose was 96. Endoscopy was indicated to evaluate for pathology that may explain the bleeding. She may have varices. She may have hemorrhagic gastritis or she may have a gastric or duodenal ulcer. INFORMED CONSENT: Time of informed consent was 13:50. The procedure was reviewed with the patient. The patient had no further questions and accepts the risks and benefits thereof. One of the risks that were discussed included . Additional risks that were also discussed included bleeding, reaction to medication, possible perforation and possible need for surgery. IV MEDICATIONS USED: Versed 2 mg and propofol 130 mg. FINDINGS: ESOPHAGUS: Proximal, mid and distal esophagus normal. There may have been a short finger or two of Briseno's mucosa. This was not biopsied at this time. This was not inflamed. EG JUNCTION: This was at 38 cm. STOMACH: Cardia and fundus: A few linear areas of erythema noted. No bleeding was noted. Body: This appeared normal. Antrum: There were several linear and scattered areas of erythema, edema and petechia. There was one ulcer about 1 x 3 mm in size. This had a clean base, very little risk of bleeding. No blood was noted on the mucosa. PYLORUS: Normal. DUODENUM: In the bulb, there were a few areas of erythema and edema, but no ulcers seen and no blood was seen. Descending limb of the duodenum appeared normal. RECOMMENDATIONS: I have no objections to a clear liquid diet and gradually advance as tolerated. This diet probably should be caffeine. She definitely should avoid alcohol. I would recommend PPI medications for about 2 months and then discontinue. I would recommend a repeat EGD in around 3 months to evaluate status of healing. Antireflux measures probably would not hurt. If she avoids alcohol but still has significant inflammation, we may need to reduce the aspirin. SEDATION TIME: 14:00 to 14:25.Please refer to the preprocedure nurse's notes, procedure flowsheet, procedure record, and post-procedure assessment for details of the sedation including the pre-, intra-, and post-service work. CRD:kh Job ID: [id number] Doc ID: [id number] Samuel Ball ACCOUNT STRATEGIST-C
--- NOTE | 2018-10-22 12:12 | Surgical Pathology Report ---
HISTOLOGY SPECIMEN MICROSCOPIC DIAGNOSIS STOMACH, ANTRUM, BIOPSY: -- MILD CHRONIC GASTRITIS. -- NO HELICOBACTER SPECIES IDENTIFIED ON ALCIAN YELLOW STAIN (ADEQUATE TECHNICAL CONTROL). (EBD:raji) CLINICAL HISTORY Upper GI bleed. PROCEDURAL IMPRESSION Gastric ulcer; gastritis; duodenitis; Briseno's (?). GROSS DESCRIPTION Received in formalin labeled antrum biopsy, are multiple saunders mucosal fragments with maximum dimensions ranging from 0.2 to 0.3 cm. Entirely submitted in one cassette. (RLF:adj) Electronically Signed by: Zulema Berg M.D.
== END 2018-10-21 10:57 | disposition home or self-care (01) | DRG 384 ==
LOC: ED 19:22 → ICU 10-20 00:44
PROVIDERS: ADMIT Internal Medicine; ATTEND Internal Medicine